=== PATIENT | male | born 1995 | race Two or more races ===

== ENCOUNTER 2019-03-22 11:04 | Day surgery (SDC) | payer OTHER ==
[~2019-03-22 11:04] MED LIST: AMPICILLIN SODIUM 2 GM in NORMAL SALINE 100 ML IV PRN; DEXAMETHASONE SOD PHOS INJ 10 MG/1 ML VIAL ONE; FENTANYL CITRATE INJ/PF 100 MCG/2 ML AMPUL ONE; GLYCOPYRROLATE INJ 0.4 MG/2 ML VIAL ONE; LIDOCAINE 2% INJ-PF (100 MG/5 ML) SYRINGE ONE; MIDAZOLAM 2 MG/2 ML INJ ONE; ONDANSETRON HCL INJ/PF 4 MG/2 ML SDV ONE; PROPOFOL INJ 200 MG/20 ML VIAL IV ONE; SUCCINYLCHOLINE CHLORIDE INJ 200 MG/10 ML VIAL ONE
[2019-03-22] MEDS ORDERED: OXYMETAZOLINE HCL 0.05% NASAL SPRAY 15 ML BOTTLE ONE (12:23)
[2019-03-22] MEDS ORDERED: OXYCODONE-ACETAMINOPHEN 5-325 MG TABLET ONE (13:40)
--- NOTE | 2019-03-22 13:47 | Operative Report ---
Operative Report-[facility] Operative Report: Date: 22 March 2019 History: Patient with a history of adenotonsillar hypertrophy, presents today for an adenotonsillectomy. Informed consent was obtained for the patient. Pre-operative diagnosis: 1. Obstructive Adenotonsillar Hypertrophy 2. Sleep related breathing disorder Post operative diagnosis: 1. Obstructive adenotonsillar hypertrophy 2. Sleep-related breathing disorder 3. Papilloma posterior pillar right tonsil Procedure: 1. Adenotonsillectomy 2. Excision papilloma posterior pillar right tonsil Surgeon: Ashvin Cunha MD, FACS, [facility] Anesthesia: General via Endotrachreal intubation Procedure: After receiving informed consent from the patient, the patient was brought to the operating room and placed supine on the operating table. After successful induction and intubation by anesthesia the patient was turned 90 degrees and placed in Trendelenburg. A shoulder roll was placed along with a head drape. A McIvor mouth gag was inserted atraumatically into the oral cavity and opened up. The soft palate was palpated and found to be normal. Red rubber catheters were inserted down each nasal cavity and brought out to elevate the soft palate. A papilloma was noted to be attached to the posterior pillar of the right tonsil. This was removed using Bovie electrocautery and submitted to pathology for examination. A mirror was used to views the nasopharynx and adenoid pad was found to be 3+. Using the PEAK System and adenoidectomy was performed. Hemostasis was obtained using the same system. A pack was then placed into the nasopharynx. Attention was then directed to the tonsils. The right tonsil was grasped with tenaculum and retracted medially. Using Bovie electrocautery the right tonsil was dissected free from its tonsillar fossa . Hemostasis was obtained using suction Bovie electrocautery. A similar procedure was performed on the left side. Both tonsils were removed. The tonsils were 4+. The pack was removed from the nasopharynx and the bed was found to be dry. The oral pharynx and the oral cavity were irrigated with copious amounts of normal saline, without evidence of bleeding. An orogastric tube was inserted into the stomach to aspirate gastric contents. The McIvor mouthgag was then released and reopened, the surgical bed was dry without evidence of bleeding. The McIvor mouth gag along with the red catheters were removed from the patient. The patient was then returned back to anesthesia who successfully extubated the patient. Estimated blood loss: 10 mL Fluids: 800 mL The patient was then transported to the Post Anesthesia Care Unit in stable condition with spontaneous respiration. No complication.
== END 2019-03-22 14:21 | disposition home or self-care (01) ==
LOC: SC 11:04
PROVIDERS: ATTEND Otolaryngology
DX: G47.30 Sleep apnea, unspecified (principal); J35.3 Hypertrophy of tonsils with hypertrophy of adenoids; R06.83 Snoring; J35.2 Hypertrophy of adenoids; D10.5 Benign neoplasm of other parts of oropharynx
CPT/HCPCS: 88304 ×2; 88305 ×2; 42821; 42999; J0290; J2250; J3010; J2001; J3490; J0330; J2405; J7050; J2704; J1100; 170

== ENCOUNTER 2019-04-06 18:15 | Emergency (ER) | payer OTHER ==
--- NOTE | 2019-04-06 18:35 | ER Document Report ---
ED Medical Screen (RME) - General Chief Complaint: Post Surgical Bleeding Stated Complaint: POST SURGICAL BLEEDING Time Seen by Provider: 04/06/19 18:30 Primary Care Provider: CHEMA APARICIO [Primary Care Provider] - Follow up as needed Mode of Arrival: Ambulatory Information source: Patient Notes: 23-year-old male presents emergency department with nosebleed. Reports he had his tonsils and adenoids removed at surgery care [address] ledesma. He reports he had a nosebleed approximately 4 days ago. Went away after he placed ice and gargled. He reports that he started bleeding today have less an hour ago. Reports it will not stop bleeding. I have greeted and performed a rapid initial assessment of this patient. A comprehensive ED assessment and evaluation of the patient, analysis of test results and completion of the medical decision making process will be conducted by additional ED providers. Dictation of this chart was performed using voice recognition software; therefore, there may be some unintended grammatical errors. TRAVEL OUTSIDE OF THE [place] IN LAST 30 DAYS: No - Related Data Allergies/Adverse Reactions: No Known Allergies Allergy (Verified 03/17/19 14:22) Past Medical History - Past Medical History Cardiac Medical History: Denies: Hx Heart Attack, Hx Hypertension Pulmonary Medical History: Denies: Hx Asthma Neurological Medical History: Denies: Hx Cerebrovascular Accident, Hx Seizures GI Medical History: Reports: Hx Hepatitis. Denies: Hx Hiatal Hernia, Hx Ulcer Infectious Medical History: Reports: Hx Hepatitis Past Surgical History: Denies: Hx Open Heart Surgery, Hx Pacemaker Physical Exam - Vital signs Vitals: Temp Pulse Resp BP Pulse Ox 98.3 F 79 20 114/73 100 04/06/19 18:26 04/06/19 18:26 04/06/19 18:26 04/06/19 18:26 04/06/19 18:26 Course - Vital Signs Vital signs: Temp Pulse Resp BP Pulse Ox 98.3 F 79 20 114/73 100 04/06/19 18:26 04/06/19 18:26 04/06/19 18:26 04/06/19 18:26 04/06/19 18:26 Doctor's Discharge - Discharge Referrals: [facility] [Primary Care [facility]] - Follow up as needed
--- NOTE | 2019-04-06 20:02 | ER Document Report ---
HPI - HPI Patient complains to provider of: post op bleed Time Seen by Provider: 04/06/19 18:30 Pain Level: Denies Context: 23-year-old healthy male presents to the emergency department with a postop rebleed from a tonsillectomy and adenoid removal 2 weeks ago. Patient states that he coughed just prior to arrival and noticed that he spit up a clot and had a steady constant moderate bleed from the surgical site. Patient states that it mostly resolved at arrival. Patient denies any dizziness or lightheadedness, acute weakness, pallor, nausea or vomiting, chest pain. - CONSTITUTIONAL Constitutional: DENIES: Fever, Chills - EENT EENT: DENIES: Sore Throat, Ear Pain, Eye problems - CARDIOVASCULAR Cardiovascular: DENIES: Chest pain - GASTROINTESTINAL Gastrointestinal: DENIES: Abdominal Pain - URINARY Urinary: DENIES: Dysuria Past Medical History - General Information source: Patient - Social History Smoking Status: Never Smoker Chew tobacco use (# tins/day): No Frequency of alcohol use: Occasional Drug Abuse: None Family History: None Patient has suicidal ideation: No Patient has homicidal ideation: No - Past Medical History Cardiac Medical History: Denies: Hx Heart Attack, Hx Hypertension Pulmonary Medical History: Denies: Hx Asthma Neurological Medical History: Denies: Hx Cerebrovascular Accident, Hx Seizures GI Medical History: Reports: Hx Hepatitis. Denies: Hx Hiatal Hernia, Hx Ulcer Infectious Medical History: Reports: Hx Hepatitis Past Surgical History: Reports: Hx Tonsillectomy - recent tonsillectomy. Denies: Hx Open Heart Surgery, Hx Pacemaker Vertical Provider Document - CONSTITUTIONAL Notes: PHYSICAL EXAMINATION: Reviewed vital signs and charting by RN GENERAL: Alert, interacts well. No acute distress. HEAD: Normocephalic, atraumatic. EYES: Pupils equal and round. Extraocular movements intact. ENT: Oral mucosa moist, tongue midline. Bilateral eschars present from surgical site, there is a small amount of blood in the back of the throat no active bleeding from the surgical site NECK: Full range of motion. Trachea midline. EXTREMITIES: Moves all 4 extremities spontaneously. No edema, No cyanosis. PSYCH: Normal affect, normal mood. SKIN: Warm, dry, normal turgor. No rashes or lesions noted. - INFECTION CONTROL TRAVEL OUTSIDE OF THE [place] IN LAST 30 DAYS: No Course - Re-evaluation Re-evalutation: 04/06/19 20:[address] [place] and plan is to get a CBC to get a baseline hemoglobin. Otherwise, patient's bleeding has resolved and he has been given strict return precautions. 04/06/19 20:39 Hemoglobin 15.9. We now baseline. Patient is stable for discharge. - Vital Signs Vital signs: Temp Pulse Resp BP Pulse Ox 98.3 F 79 20 114/73 100 04/06/19 18:26 04/06/19 18:26 04/06/19 18:26 04/06/19 18:26 04/06/19 18:26 - Laboratory Result Diagrams: 04/06/19 20:16 Discharge - Discharge Clinical Impression: Postoperative bleeding from mouth Condition: Good Disposition: HOME, SELF-CARE Additional Instructions: You were seen in the emergency department for a postop bleed. It is mostly resolved and we also checked her hemoglobin which was within normal range. If this happens again please gargle ice cold water like we talked about to help vasoconstrict the vessels. If that does not resolve it then return to the emergency department for more definitive intervention. Please follow-up with Dr. Cunha and let them know that you are he bled. Please return to the emergency department if you have any other concerns. Referrals: [facility] [Primary Care Provider] - Follow up as needed OJ CUNHA MD [ACTIVE STAFF] - Follow up as needed
[2019-04-06 20:30] LABS: HEMATOCRIT 45.4 % (37.9-51.0); HEMOGLOBIN 15.9 g/dL (13.5-17.0); MEAN CORPUSCULAR VOLUME 86 fl (80-97); PLATELET COUNT 327 10^3/uL (150-450); RED BLOOD COUNT 5.29 10^6/uL (4.35-5.55); RED CELL DISTRIBUTION WIDTH 12.7 % (11.5-14.0); WHITE BLOOD COUNT 10.2 10^3/uL (4.0-10.5)
[2019-04-06 20:51] VITALS: BP 116/70
== END 2019-04-06 20:53 | disposition home or self-care (01) ==
LOC: ER 18:15
DX: K91.841 Postprocedural hemorrhage of a digestive system organ or structure following other procedure (principal); R05 Cough; Z98.890 Other specified postprocedural states
CPT/HCPCS: 36415; 85027